=== PATIENT | male | born 1955 | race Caucasian/White ===

== ENCOUNTER 2025-02-13 09:02 | Outpatient (AMB) | payer MEDICARE, SELFPAY ==
--- NOTE | 2025-02-13 09:13 | A.PHYSOV ---
Vital Signs 02/13/25 09:15 Height 5 ft 10 in Weight 215 lb BMI 30.8 Intake Visit Reasons: left shoulder pain Intake Note: Patient is a 38 year old male here for new patient visit. Patient is being referred with neck pain and pain going down left arm. Analytical Manager Required: No Allergies No Known Allergies Allergy (Verified 02/13/25 09:16) [facility] Social History Alcohol intake: current Alcohol intake frequency: holidays/special occasions only Patient Tobacco Use Status: Never used Tobacco Use of substances other than those prescribed or required for medical reasons: No Physical Exam Vital Signs: BMI result Body Mass Index 30.8 Office Procedures AMB Shoulder Injection AMB Shoulder Injection Procedure Details: Bilateral Subacromial injection Procedure: The patient was educated about risks, complications and benefits including but not limited to increased serum glucose, infection, nerve damage, bleeding, tendon/ligament damage and pain. We agree with a subacromial injection is the next best step in the treatment plan. Verbal consent was obtained. Using aseptic technique, the skin was cleansed with Betadine. Ethyl chloride was used to desensitize the skin. Using a posterior approach left, 40 mg of Kenalog and 3 mL 2% lidocaine were injected using a 25-gauge inch and a half needle into the subacromial space. The patient tolerated the procedure well without immediate complication. Postinjection instructions were given. The procedure was repeated on the right. Shoulder Injection - : Bilateral All charges added?: Procedure code (CPT) selection complete Office Meds Kenalog 40 mg/mL suspension for injection Performing Provider: SCOTT Eugene Performing Location: [facility] Administered by: SCOTT Eugene on 02/13/25 09:46 Dose Route Admin Location Dispensed Lot Number Expiration Date [facility] Loin Pull[employer] 40 mg intrabursal 1 mL [id number] [employer] Total Dispensed Waste 1 mL 0 % lidocaine (PF) 20 mg/mL (2 %) injection solution Performing Provider: SCOTT Eugene Performing Location: [facility] Administered by: SCOTT Eugene on 02/13/25 09:46 Dose Route Admin Location Dispensed Lot Number Expiration Date [facility] Loin Puller 60 mg intrabursal 5 mL [id number] [facility] Total Dispensed Waste 5 mL 40 % Assessment & Plan Assessment & Plan (1) Impingement of both shoulders: Code(s): M25.811 - Other specified joint disorders, right shoulder; M25.812 - Other specified joint disorders, left shoulder Category: Medical Plan: Mr. Kim is a 69-year-old male seen in evaluation today for bilateral shoulder impingement. Today consented to bilateral subacromial injection. He is given post-injection instructions, recommend: Moist heat compresses for 15 minutes up to 5 times daily. He should avoid repetitive overhead activities. Follow-up with our office as needed. Thank you for allowing me to participate in the care of your patient. Orders: Orders AMB Shoulder Injection Today M25.811 - Other specified joint disorders, right shoulder, M25.812 - Other specified joint disorders, left shoulder Medications: New meloxicam 15 mg PO DAILY 30 tabs 4RF 30 days M25.811 - Other specified joint disorders, right shoulder, M25.812 - Other specified joint disorders, left shoulder Coding Level of Care Code Procedure Only Diagnoses Impingement of both shoulders M25.811; M25.812 CPT Codes AMB Shoulder Injection - Hip/Bursa Injection - : Bilateral ([id number])
[2025-02-13 09:15] VITALS: BMI 30.8
--- OUTSIDE RECORDS SUMMARY | 2025-02-13 09:51 | XMS_ITS ---
Author Name [facility] Organization Unknown History of Medication Use Medication Directions Dispensed Refills Start Date End Date Stat meloxicam 15 mg tablet Take 1 tablet every day by oral route. 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 2023-08-11 ProblemAct [facility] Neck pain active 2023-11-[address] [facility] [address] Cervical radiculopathy active 2023-10-28 ProblemAct [facility] 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 2023-08-11 ProblemAct [facility] Encounters Encounter Type Encounter Reason Primary Diagnosis Location Date Ambulatory [facility] [place] 11/25/2023 Ambulatory [facility] [place] 10/29/2023 Ambulatory [facility] [place] 10/28/2023 Ambulatory [facility] [place] 07/08/2023 Ambulatory [facility] [place] 07/08/2023 Ambulatory [facility] [place] 06[facility]24/2023 Ambulatory [facility] [place] 06[facility]23/2023 Ambulatory [facility] [place] 06/23/2023 Ambulatory [facility] [place] 06/22/2023 Ambulatory [facility] [place] 06/22/2023 Ambulatory [facility] [place] 06/22/2023 Ambulatory [facility] [place] 06/22/2023
== END 2025-02-13 09:38 | disposition home or self-care (01) ==
LOC: HO.HPHYS 09:03
PROVIDERS: Visit Provider Physician Assistant
DX: M25.811 Other specified joint disorders, right shoulder (principal); M25.812 Other specified joint disorders, left shoulder
CPT/HCPCS: 20610

== ENCOUNTER → 2025-02-13 09:02 | Outpatient (BNVA) | payer MEDICARE, SELFPAY | PROVIDERS: Visit Provider Physician Assistant | DX: M25.811 Other specified joint disorders, right shoulder (principal) | CPT/HCPCS: 20610; J2003; J3301 ==